=== PATIENT | female | born 1945 | race Caucasian/White ===

== ENCOUNTER → 2017-05-10 | Outpatient (CLI) | payer MEDICARE, OTHER ==
[~2017-05-10] MED LIST: HYDROCODONE1 TABLET PO; MAXZIDE 25 MG-31 TAB PO
== END ==
LOC: LAB 09:39
DX: E78.5 Hyperlipidemia, unspecified (principal); I10 Essential (primary) hypertension

== ENCOUNTER → 2017-06-28 | Outpatient (CLI) | payer MEDICARE, OTHER ==
[~2017-06-28] MED LIST changes: +ASPIRIN 325MG325 MG PO; +ASPIRIN 81MG TA81 MG PO; +CITALOPRAM HYDR40 MG PO; +HCTZ/TRIAMTEREN1 CAP PO; +KEFLEX 500MG.500 MG PO; +LIVALO4 MG PO; +LORATADINE 10MG10 M1 PO
[2017-06-28 13:58] LABS: LYMPH # 2.2 K/mm3 (0.7-4.5); LYMPH % 25.8 % (10-50.0)
[2017-06-28 14:07] LABS: HEMOGLOBIN 14.5 g/dL (12.2-16.2)
[2017-06-28 15:54] LABS: ABO BLOOD TYPE O; ANTIHUMAN GLOB CROSSMATCH COMPAT; RH BLOOD TYPE POSITIVE
[2017-06-28 15:55] LABS: ANTIHUMAN GLOB CROSSMATCH COMPAT
[2017-06-28 21:02] LABS: BUN 14 mg/dL (7-18)
[2017-06-28 21:06] LABS: GFR (ESTIMATED) 99 ML/MIN (59-)
== END ==
LOC: LAB 12:29
PROVIDERS: Orthopaedic Surgery
DX: M17.11 Unilateral primary osteoarthritis, right knee (principal); Z01.810 Encounter for preprocedural cardiovascular examination; Z01.811 Encounter for preprocedural respiratory examination; Z01.812 Encounter for preprocedural laboratory examination

== ENCOUNTER → 2017-07-16 | Outpatient (CLI) | payer MEDICARE, OTHER ==
--- NOTE | 2017-07-16 16:19 | RADIOLOGY REPORT PS360 ---
KNEE-LIMITED 2 VIEWS-RT HISTORY: PRESENCE OF RT ARTIFICIAL KNEE JOINT Patient Age: 71 years: Female Ordering Physician: Cesar Winchester MD TECHNIQUE: AP lateral view right knee COMPARISON : Right knee TKA placement 06/29/2017 Left knee 08/28/2016 February 27, 2016 FINDINGS Right TKA in place. Since TKA procedure 06/29/2017. The components appear to be in good position and well seated. No fracture nor loosening. Joint effusion persists IMPRESSION: . Right TKA in place. Good stable position. Joint effusion persist
== END ==
LOC: RAD 09:21
DX: Z96.651 Presence of right artificial knee joint (principal)

== ENCOUNTER → 2017-08-20 | Outpatient (CLI) | payer MEDICARE, OTHER ==
[2017-08-20 15:15] LABS: BUN 14 mg/dL (7-18); GFR (ESTIMATED) 99 ML/MIN (59-)
== END ==
LOC: LAB 10:54
PROVIDERS: Internal Medicine
DX: E78.5 Hyperlipidemia, unspecified (principal); I10 Essential (primary) hypertension